=== PATIENT | male | born 1980 | race Hispanic/Latino ===

== ENCOUNTER 2021-09-24 11:23 | Emergency (ER) | payer SELFPAY ==
[2021-09-24 19:02] LABS: SARS-CoV-2 PCR by NAA Not Detected (NotDetected)
== END 2021-09-24 13:10 | disposition home or self-care (01) ==
LOC: ERS 11:23
DX: U07.1 COVID-19 (principal)
CPT/HCPCS: 99283; U0003; U0005

== ENCOUNTER 2024-01-04 20:05 | Emergency (ER) | payer OTHER ==
[2024-01-04] MEDS ORDERED: Boostrix 0.5 ML (Tdap) VIAL (>/=7 yrs of age) ONE (20:42)
[2024-01-04] MEDS ORDERED: Lidocaine 1% PF 5 ML VIAL ONE (20:42)
[2024-01-04] MEDS ORDERED: Bacitracin 1 PK ONE (21:42)
== END 2024-01-04 22:17 | disposition home or self-care (01) ==
LOC: ERS 20:05
DX: S61.412A Laceration without foreign body of left hand, initial encounter (principal); S81.812A Laceration without foreign body, left lower leg, initial encounter; V59.49XA Driver of pick-up truck or van injured in collision with other motor vehicles in traffic accident, initial encounter; W22.11XA Striking against or struck by driver side automobile airbag, initial encounter; Z23 Encounter for immunization
CPT/HCPCS: 90471; 90715